=== PATIENT | female | born 1980 | race Hispanic/Latino ===

== ENCOUNTER → 2021-09-21 | Outpatient (CLI) | payer OTHER | LOC: MAMMO 12:56 | PROVIDERS: ATTEND Obstetrics & Gynecology | DX: Z12.31 Encounter for screening mammogram for malignant neoplasm of breast (principal) | CPT/HCPCS: 77067 ==

== ENCOUNTER → 2021-10-04 | Outpatient (CLI) | payer OTHER | LOC: MAMMO 11:40 | PROVIDERS: ATTEND Obstetrics & Gynecology | DX: N64.89 Other specified disorders of breast (principal) ==